=== PATIENT | male | born 1950 | race Hispanic/Latino ===

== ENCOUNTER 2020-09-02 22:11 | Inpatient (IN) | payer MEDICARE ==
[~2020-09-02] VITALS: Ht 175.3 cm; Wt 58.4 kg
[2020-09-02 23:17] LABS: BASOPHILS % (AUTO) 0.5 % (0.0-5.0); EOSINOPHILS % (AUTO) 3.4 % (0.0-8.0); HEMATOCRIT 40.4 % (42-54); LYMPHOCYTES % (AUTO) 23.1 % (21.0-51.0); MEAN CORPUSCULAR HEMOGLOBIN 30.5 pg (27.0-33.0); MEAN CORPUSCULAR HGB CONC 33.4 g/dL (32.0-36.0); MEAN CORPUSCULAR VOLUME 91.2 fL (79-99); MONOCYTES % (AUTO) 6.9 % (3.0-13.0); NEUTROPHILS % (AUTO) 65.8 % (40.0-77.0); PLATELET COUNT (AUTO) 222 K/uL (130-400); RED BLOOD CELL COUNT(AUTO) 4.43 MIL/uL (4.50-6.20); RED CELL DISTRIBUTION WIDTH 12.8 % (11.0-15.5); WHITE BLOOD COUNT (AUTO) 9.5 K/uL (4.8-10.8)
[2020-09-02 23:26] LABS: POTASSIUM 4.5 mmol/L (3.5-5.1)
[2020-09-02 23:32] LABS: ALBUMIN 3.8 g/dL (3.5-5.0); BILIRUBIN,TOTAL 0.5 mg/dL (0.2-1.0); TOTAL PROTEIN, SERUM 9.2 g/dL (6.0-8.3)
[2020-09-03 01:46] LABS: APPEARANCE,URINE Cloudy (CLEAR); BILIRUBIN,URINE Negative (NEGATIVE); COLOR,URINE Dark Yellow (YELLOW); GLUCOSE, URINE (UA) Negative (NEGATIVE); KETONES,URINE Trace mg/dL (NEGATIVE); LEUKOCYTE ESTERASE ,URINE Large (NEGATIVE); NITRATE,URINE Negative (NEGATIVE); OCCULT BLOOD,URINE Small (NEGATIVE); PH,URINE 5.5 (5.0-8.0); PROTEIN,URINE 300 mg/dL (NEGATIVE)
[2020-09-03 01:55] LABS: BACTERIA,URINE Many /HPF (None Seen); SQUAMOUS EPITHELIAL CELL,UR Moderate /HPF (0-2); WBC,URINE 26-50 /HPF (0-1)
[2020-09-03] MEDS ORDERED: ZOSYN 3.375GM+NS 50ML 50 ML IV ONE ×2 (06:29→13:01)
[2020-09-03] MEDS: LEVOTHYROXINE 75 MCG TABLET PO SCH (06:30)
[2020-09-03] MEDS: LEVOTHYROXINE 88 MCG TABLET PO SCH (06:30)
[2020-09-03 07:59] LABS: BASOPHILS % (AUTO) 0.6 % (0.0-5.0); EOSINOPHILS % (AUTO) 2.3 % (0.0-8.0); HEMATOCRIT 40.9 % (42-54); LYMPHOCYTES % (AUTO) 22.5 % (21.0-51.0); MEAN CORPUSCULAR HEMOGLOBIN 29.9 pg (27.0-33.0); MEAN CORPUSCULAR HGB CONC 32.3 g/dL (32.0-36.0); MEAN CORPUSCULAR VOLUME 92.5 fL (79-99); MONOCYTES % (AUTO) 5.7 % (3.0-13.0); NEUTROPHILS % (AUTO) 68.6 % (40.0-77.0); PLATELET COUNT (AUTO) 217 K/uL (130-400); RED BLOOD CELL COUNT(AUTO) 4.42 MIL/uL (4.50-6.20); RED CELL DISTRIBUTION WIDTH 12.8 % (11.0-15.5); WHITE BLOOD COUNT (AUTO) 9.6 K/uL (4.8-10.8)
[2020-09-03] MEDS ORDERED: ATOR10 PO (08:08)
[2020-09-03] MEDS ORDERED: AEC81 PO (08:08)
[2020-09-03] MEDS ORDERED: FERR324T PO (08:08)
[2020-09-03] MEDS ORDERED: LOSA25TA41 PO (08:08)
[2020-09-03] MEDS ORDERED: OMEP40CA21 PO (08:08)
[2020-09-03] MEDS ORDERED: LEVO75CA5 PO (08:08)
[2020-09-03] MEDS ORDERED: GABA300C PO (08:08)
[2020-09-03] MEDS ORDERED: FENO145T26 PO ×2 (08:08)
[2020-09-03 08:11] LABS: HEMOGLOBIN A1C 7.8 % (4.0-6.0); POTASSIUM 4.5 mmol/L (3.5-5.1)
[2020-09-03] MEDS ORDERED: ENOXAPARIN SODIUM 30 MG/0.3 ML SQ ONE (08:31)
[2020-09-03] MEDS ORDERED: ONDANSETRON 4MG TABLET PO PRN (09:15)
[2020-09-03] MEDS ORDERED: ACETAMINOPHEN 325 MG TAB PO PRN (09:15)
[2020-09-03] MEDS ORDERED: OMEG-148 PO (09:39)
[2020-09-03] MEDS ORDERED: LEVO88CA4 PO (09:39)
[2020-09-03] MEDS ORDERED: AMLO-257 PO (09:39)
[2020-09-03] MEDS ORDERED: VITAMIN D PO (09:39)
[2020-09-03] MEDS ORDERED: CITA-107 PO (09:39)
[2020-09-03] MEDS ORDERED: MONT5TAB24 PO (09:39)
[2020-09-03] MEDS: INSULIN R PO SS1 SQ SCH ×2 (11:30→17:14)
[2020-09-03] MEDS: ZOSYN 3.375GM+NS 50ML 50 ML IV SCH ×2 (13:00→20:38)
[2020-09-03] MEDS ORDERED: 0.9%NACL 50ML 50 ML IV ONE (13:05)
[2020-09-03] MEDS ORDERED: DEXTROSE 5 % AND 0.9 % NACL 1,000 ML IV ONE (15:21)
[2020-09-03] MEDS: DEXTROSE 5 % AND 0.9 % NACL 1,000 ML IV SCH (16:15)
[2020-09-03 16:35] VITALS: BP 171/87
[2020-09-03 20:50] VITALS: BP 130/67
[2020-09-03] MEDS: MONTELUKAST SODIUM 5 MG PO SCH (21:00)
[2020-09-03] MEDS: FERROUS GLUCONATE TABLET PO SCH (21:00)
[2020-09-03] MEDS: GABAPENTIN 300 MG CAPSULE PO SCH (21:00)
[2020-09-03] MEDS: FISH OIL 1000 MG/CAP PO SCH (21:00)
[2020-09-03] MEDS: AMLODIPINE 5 MG TAB PO SCH (21:00)
[2020-09-03] MEDS: ATORVASTATIN 10 MG TABLET PO SCH (21:00)
[2020-09-04] VITALS (7 sets, daily range): BP systolic 107–171; BP diastolic 66–86
[2020-09-04] MEDS: ZOSYN 3.375GM+NS 50ML 50 ML IV SCH ×3 (04:57→20:51)
[2020-09-04] MEDS: INSULIN HUMULIN R 100 UNIT/ML 3ML SQ SCH ×5 (06:00→20:53)
[2020-09-04] MEDS ORDERED: LOSARTAN 25 MG TABLET PO SCH (09:00)
[2020-09-04] MEDS: ASPIRIN 81 MG EC TAB PO SCH (12:00)
[2020-09-04] MEDS: AMLODIPINE 5 MG TAB PO SCH ×2 (12:00→20:51)
[2020-09-04] MEDS: LEVOTHYROXINE 75 MCG TABLET PO SCH (12:26)
[2020-09-04] MEDS: FISH OIL 1000 MG/CAP PO SCH ×2 (12:27→20:52)
[2020-09-04] MEDS: PANTOPRAZOLE 40 MG TAB DR PO SCH (12:27)
[2020-09-04] MEDS: FERROUS GLUCONATE TABLET PO SCH ×2 (12:30→20:52)
[2020-09-04] MEDS: CITALOPRAM 20 MG TABLET PO SCH (12:31)
[2020-09-04] MEDS: ENOXAPARIN SODIUM 30 MG/0.3 ML SQ SCH (12:32)
[2020-09-04] MEDS: DEXTROSE 5 % AND 0.9 % NACL 1,000 ML IV SCH (12:50)
[2020-09-04] MEDS: GABAPENTIN 300 MG CAPSULE PO SCH (20:51)
[2020-09-04] MEDS: ATORVASTATIN 10 MG TABLET PO SCH (20:51)
[2020-09-04] MEDS ORDERED: 0.9% NACL 250ML 250 ML IV ONE (20:55)
[2020-09-04] MEDS: MONTELUKAST SODIUM 5 MG PO SCH (21:00)
[2020-09-04] MEDS ORDERED: BALSAM PERU/CASTOR OIL 60 GM TUBE TP SCH (21:00)
[2020-09-04] MEDS: BALSAM PERU/CASTOR OIL 60 GM TUBE TP SCH (21:49)
[2020-09-05 03:50] VITALS: BP 124/73
[2020-09-05] MEDS: ZOSYN 3.375GM+NS 50ML 50 ML IV SCH ×3 (04:54→21:25)
[2020-09-05 05:22] LABS: HEMATOCRIT 38.3 % (42-54); MEAN CORPUSCULAR HGB CONC 31.9 g/dL (32.0-36.0); MEAN CORPUSCULAR VOLUME 94.1 fL (79-99); RED BLOOD CELL COUNT(AUTO) 4.07 MIL/uL (4.50-6.20); RED CELL DISTRIBUTION WIDTH 12.9 % (11.0-15.5); WHITE BLOOD COUNT (AUTO) 8.5 K/uL (4.8-10.8)
[2020-09-05 05:47] LABS: POTASSIUM 3.4 mmol/L (3.5-5.1)
[2020-09-05] MEDS: INSULIN HUMULIN R 100 UNIT/ML 3ML SQ SCH ×5 (06:00→21:32)
[2020-09-05] MEDS ORDERED: LIDOCAINE HCL-MPF 1% 2ML VIAL IV PRN (06:45)
[2020-09-05] MEDS ORDERED: POTASSIUM CHLORIDE 10MEQ/100ML 100 ML IV PRN (06:45)
[2020-09-05] MEDS ORDERED: 1/2 NS 1000ML 1,000 ML IV ONE ×2 (06:48→06:51)
[2020-09-05] MEDS: LEVOTHYROXINE 88 MCG TABLET PO SCH (06:52)
[2020-09-05] MEDS: LEVOTHYROXINE 75 MCG TABLET PO SCH (06:52)
[2020-09-05] MEDS: 1/2 NS 1000ML 1,000 ML IV SCH ×2 (07:40→21:25)
[2020-09-05 08:58] VITALS: BP 145/68
[2020-09-05] MEDS ORDERED: ERGOCALCIFEROL (VITAMIN D2) 50,000 UNIT CAPSULE PO SCH (09:00)
[2020-09-05] MEDS: AMLODIPINE 5 MG TAB PO SCH ×2 (10:04→21:27)
[2020-09-05] MEDS: FERROUS GLUCONATE TABLET PO SCH ×2 (10:04→21:26)
[2020-09-05] MEDS: FISH OIL 1000 MG/CAP PO SCH ×2 (10:04→21:26)
[2020-09-05] MEDS: CITALOPRAM 20 MG TABLET PO SCH (10:04)
[2020-09-05] MEDS: PANTOPRAZOLE 40 MG TAB DR PO SCH (10:04)
[2020-09-05] MEDS: ASPIRIN 81 MG EC TAB PO SCH (10:05)
[2020-09-05] MEDS: BALSAM PERU/CASTOR OIL 60 GM TUBE TP SCH ×3 (10:06→21:27)
[2020-09-05] MEDS: ENOXAPARIN SODIUM 30 MG/0.3 ML SQ SCH (10:06)
[2020-09-05 13:09] VITALS: BP 152/74
[2020-09-05] MEDS: KCL 20 MEQ ERTAB PO PRN ×2 (14:49→18:15)
[2020-09-05 15:00] VITALS: BP 140/73
[2020-09-05 20:00] VITALS: BP 153/86
[2020-09-05] MEDS: MONTELUKAST SODIUM 5 MG PO SCH (21:00)
[2020-09-05] MEDS: GABAPENTIN 300 MG CAPSULE PO SCH (21:26)
[2020-09-05] MEDS: ATORVASTATIN 10 MG TABLET PO SCH (21:26)
[2020-09-05 23:51] VITALS: BP 136/68
[2020-09-06 03:54] VITALS: BP 127/73
[2020-09-06] MEDS: ZOSYN 3.375GM+NS 50ML 50 ML IV SCH ×3 (05:02→20:52)
[2020-09-06] MEDS: INSULIN HUMULIN R 100 UNIT/ML 3ML SQ SCH ×4 (05:59→20:50)
[2020-09-06 06:03] LABS: HEMATOCRIT 39.1 % (42-54); MEAN CORPUSCULAR HGB CONC 32.5 g/dL (32.0-36.0); MEAN CORPUSCULAR VOLUME 92.2 fL (79-99); RED BLOOD CELL COUNT(AUTO) 4.24 MIL/uL (4.50-6.20); RED CELL DISTRIBUTION WIDTH 12.8 % (11.0-15.5); WHITE BLOOD COUNT (AUTO) 10.2 K/uL (4.8-10.8)
[2020-09-06] MEDS: LEVOTHYROXINE 88 MCG TABLET PO SCH (06:24)
[2020-09-06] MEDS: LEVOTHYROXINE 75 MCG TABLET PO SCH (06:24)
[2020-09-06] MEDS: 1/2 NS 1000ML 1,000 ML IV SCH (06:24)
[2020-09-06 06:39] LABS: CREATININE 1.6 mg/dL (0.5-1.5); POTASSIUM 3.2 mmol/L (3.5-5.1)
[2020-09-06 08:00] VITALS: BP 129/71
[2020-09-06] MEDS: CITALOPRAM 20 MG TABLET PO SCH (09:38)
[2020-09-06] MEDS: FERROUS GLUCONATE TABLET PO SCH ×2 (09:38→20:54)
[2020-09-06] MEDS: ASPIRIN 81 MG EC TAB PO SCH (09:38)
[2020-09-06] MEDS: AMLODIPINE 5 MG TAB PO SCH ×2 (09:38→20:53)
[2020-09-06] MEDS: FISH OIL 1000 MG/CAP PO SCH ×2 (09:38→20:53)
[2020-09-06] MEDS: PANTOPRAZOLE 40 MG TAB DR PO SCH (09:38)
[2020-09-06] MEDS: ENOXAPARIN SODIUM 30 MG/0.3 ML SQ SCH (09:38)
[2020-09-06] MEDS: BALSAM PERU/CASTOR OIL 60 GM TUBE TP SCH ×3 (09:39→22:39)
[2020-09-06 12:00] VITALS: BP 123/57
[2020-09-06 16:00] VITALS: BP 117/60
[2020-09-06 19:50] VITALS: BP 143/66
[2020-09-06] MEDS: GABAPENTIN 300 MG CAPSULE PO SCH (20:53)
[2020-09-06] MEDS: POTASSIUM CHLORIDE 10% ELIXIR 20 MEQ/15 ML UDCUP PO PRN ×2 (20:53→22:48)
[2020-09-06] MEDS: ATORVASTATIN 10 MG TABLET PO SCH (20:54)
[2020-09-06] MEDS: MONTELUKAST SODIUM 5 MG PO SCH (21:00)
[2020-09-06 23:30] VITALS: BP 107/58
[2020-09-07] MEDS: POTASSIUM CHLORIDE 10% ELIXIR 20 MEQ/15 ML UDCUP PO PRN (00:05)
[2020-09-07] MEDS: 1/2 NS 1000ML 1,000 ML IV SCH ×2 (02:09→12:50)
[2020-09-07 04:15] VITALS: BP 127/69
[2020-09-07] MEDS: LEVOTHYROXINE 75 MCG TABLET PO SCH (05:00)
[2020-09-07] MEDS: ZOSYN 3.375GM+NS 50ML 50 ML IV SCH ×3 (05:00→20:35)
[2020-09-07] MEDS: LEVOTHYROXINE 88 MCG TABLET PO SCH (05:00)
[2020-09-07] MEDS: INSULIN HUMULIN R 100 UNIT/ML 3ML SQ SCH ×4 (06:06→20:36)
[2020-09-07 08:00] VITALS: BP 167/68
[2020-09-07] MEDS: ASPIRIN 81 MG EC TAB PO SCH (08:35)
[2020-09-07] MEDS: FERROUS GLUCONATE TABLET PO SCH ×2 (08:35→20:35)
[2020-09-07] MEDS: FISH OIL 1000 MG/CAP PO SCH ×2 (08:35→20:35)
[2020-09-07] MEDS: AMLODIPINE 5 MG TAB PO SCH ×2 (08:35→20:35)
[2020-09-07] MEDS: CITALOPRAM 20 MG TABLET PO SCH (08:35)
[2020-09-07] MEDS: PANTOPRAZOLE 40 MG TAB DR PO SCH (08:35)
[2020-09-07] MEDS: ENOXAPARIN SODIUM 30 MG/0.3 ML SQ SCH (08:36)
[2020-09-07] MEDS: BALSAM PERU/CASTOR OIL 60 GM TUBE TP SCH ×3 (08:36→20:36)
[2020-09-07 11:45] VITALS: BP 122/58
[2020-09-07 16:00] VITALS: BP 131/86
[2020-09-07 19:45] VITALS: BP 146/70
[2020-09-07] MEDS: GABAPENTIN 300 MG CAPSULE PO SCH (20:35)
[2020-09-07] MEDS: ATORVASTATIN 10 MG TABLET PO SCH (20:35)
[2020-09-07] MEDS: MONTELUKAST SODIUM 5 MG PO SCH (20:36)
[2020-09-07 23:39] VITALS: BP 140/79
[2020-09-08] MEDS: 1/2 NS 1000ML 1,000 ML IV SCH ×2 (01:25→15:11)
[2020-09-08 04:00] VITALS: BP 140/72
[2020-09-08] MEDS: ZOSYN 3.375GM+NS 50ML 50 ML IV SCH ×3 (05:08→20:22)
[2020-09-08] MEDS: LEVOTHYROXINE 88 MCG TABLET PO SCH ×2 (05:10→06:30)
[2020-09-08] MEDS: LEVOTHYROXINE 75 MCG TABLET PO SCH (05:10)
[2020-09-08 05:17] LABS: HEMATOCRIT 33.6 % (42-54); MEAN CORPUSCULAR HEMOGLOBIN 30.6 pg (27.0-33.0); MEAN CORPUSCULAR HGB CONC 35.1 g/dL (32.0-36.0); RED BLOOD CELL COUNT(AUTO) 3.86 MIL/uL (4.50-6.20); RED CELL DISTRIBUTION WIDTH 12.4 % (11.0-15.5); WHITE BLOOD COUNT (AUTO) 8.4 K/uL (4.8-10.8)
[2020-09-08 05:45] LABS: CREATININE 1.4 mg/dL (0.5-1.5); MAGNESIUM 1.4 mg/dL (1.80-2.40); POTASSIUM 3.1 mmol/L (3.5-5.1)
[2020-09-08] MEDS: INSULIN HUMULIN R 100 UNIT/ML 3ML SQ SCH ×4 (05:54→20:26)
[2020-09-08] MEDS: POTASSIUM CHLORIDE 10% ELIXIR 20 MEQ/15 ML UDCUP PO PRN (05:58)
[2020-09-08] MEDS: KCL 20 MEQ ERTAB PO PRN (08:30)
[2020-09-08 08:32] VITALS: BP 120/72
[2020-09-08] MEDS: BALSAM PERU/CASTOR OIL 60 GM TUBE TP SCH ×3 (09:00→20:24)
[2020-09-08 11:00] VITALS: BP 130/66
[2020-09-08] MEDS: ASPIRIN 81 MG EC TAB PO SCH (11:04)
[2020-09-08] MEDS: ENOXAPARIN SODIUM 30 MG/0.3 ML SQ SCH (11:04)
[2020-09-08] MEDS: PANTOPRAZOLE 40 MG TAB DR PO SCH (11:05)
[2020-09-08] MEDS: AMLODIPINE 5 MG TAB PO SCH ×2 (11:05→20:22)
[2020-09-08] MEDS: FERROUS GLUCONATE TABLET PO SCH ×2 (11:05→20:23)
[2020-09-08] MEDS: CITALOPRAM 20 MG TABLET PO SCH (11:05)
[2020-09-08] MEDS: FISH OIL 1000 MG/CAP PO SCH ×2 (11:05→20:23)
[2020-09-08] MEDS ORDERED: MAGNESIUM 4GM PREMIX 100ML 100 ML IV SCH (14:30)
[2020-09-08 16:10] VITALS: BP 114/61
[2020-09-08 20:00] VITALS: BP 142/68
[2020-09-08] MEDS: ATORVASTATIN 10 MG TABLET PO SCH (20:23)
[2020-09-08] MEDS: FENOFIBRATE NANOCRYSTALLIZED 145 MG TAB PO SCH (20:24)
[2020-09-08] MEDS: GABAPENTIN 300 MG CAPSULE PO SCH (20:25)
[2020-09-08] MEDS: MONTELUKAST SODIUM 5 MG PO SCH (20:25)
[2020-09-08 23:47] VITALS: BP 142/85
[2020-09-09 03:05] VITALS: BP 130/67
[2020-09-09] MEDS: ZOSYN 3.375GM+NS 50ML 50 ML IV SCH ×2 (04:21→11:38)
[2020-09-09] MEDS: 1/2 NS 1000ML 1,000 ML IV SCH ×2 (04:21→16:41)
[2020-09-09] MEDS: INSULIN HUMULIN R 100 UNIT/ML 3ML SQ SCH ×3 (05:29→16:41)
[2020-09-09] MEDS: LEVOTHYROXINE 75 MCG TABLET PO SCH ×2 (05:40→09:00)
[2020-09-09 06:19] LABS: MAGNESIUM 2.5 mg/dL (1.80-2.40); POTASSIUM 3.4 mmol/L (3.5-5.1)
[2020-09-09] MEDS: POTASSIUM CHLORIDE 10% ELIXIR 20 MEQ/15 ML UDCUP PO PRN ×2 (06:25→11:01)
[2020-09-09 07:52] VITALS: BP 132/74
[2020-09-09] MEDS: AMLODIPINE 5 MG TAB PO SCH (10:39)
[2020-09-09] MEDS: FERROUS GLUCONATE TABLET PO SCH (10:39)
[2020-09-09] MEDS: ASPIRIN 81 MG EC TAB PO SCH (10:39)
[2020-09-09] MEDS: FISH OIL 1000 MG/CAP PO SCH (10:39)
[2020-09-09] MEDS: PANTOPRAZOLE 40 MG TAB DR PO SCH (10:39)
[2020-09-09] MEDS: FENOFIBRATE NANOCRYSTALLIZED 145 MG TAB PO SCH (10:39)
[2020-09-09] MEDS: CITALOPRAM 20 MG TABLET PO SCH (10:39)
[2020-09-09] MEDS: ENOXAPARIN SODIUM 30 MG/0.3 ML SQ SCH (10:40)
[2020-09-09] MEDS: BALSAM PERU/CASTOR OIL 60 GM TUBE TP SCH ×2 (10:41→11:39)
[2020-09-09 11:12] VITALS: BP 129/69
[2020-09-09 16:28] VITALS: BP 129/70
[2020-09-13] MEDS ORDERED: LEVOTHYROXINE 88 MCG TABLET PO SCH (06:30)
== END 2020-09-09 18:00 | DRG 872 ==
LOC: EDH 22:11 → EDHIP 09-03 05:25 → 3BH 09-03 16:20
PROVIDERS: ADMIT Internal Medicine Infectious Disease; ATTEND Internal Medicine Infectious Disease
DX: A41.50 Gram-negative sepsis, unspecified (principal); N39.0 Urinary tract infection, site not specified; E87.0 Hyperosmolality and hypernatremia; N17.9 Acute kidney failure, unspecified; Z68.1 Body mass index [BMI] 19.9 or less, adult; I69.354 Hemiplegia and hemiparesis following cerebral infarction affecting left non-dominant side; E46 Unspecified protein-calorie malnutrition; Z16.24 Resistance to multiple antibiotics; E83.42 Hypomagnesemia; E87.6 Hypokalemia; L98.429 Non-pressure chronic ulcer of back with unspecified severity; M19.90 Unspecified osteoarthritis, unspecified site; R53.81 Other malaise; I12.9 Hypertensive chronic kidney disease with stage 1 through stage 4 chronic kidney disease, or unspecified chronic kidney disease; N18.9 Chronic kidney disease, unspecified; D64.9 Anemia, unspecified; E11.22 Type 2 diabetes mellitus with diabetic chronic kidney disease; E03.9 Hypothyroidism, unspecified; B96.1 Klebsiella pneumoniae [K. pneumoniae] as the cause of diseases classified elsewhere; B96.4 Proteus (mirabilis) (morganii) as the cause of diseases classified elsewhere; E78.5 Hyperlipidemia, unspecified; Z87.440 Personal history of urinary (tract) infections; Z83.3 Family history of diabetes mellitus; Z82.5 Family history of asthma and other chronic lower respiratory diseases; Z82.3 Family history of stroke; Z82.49 Family history of ischemic heart disease and other diseases of the circulatory system; Z74.01 Bed confinement status; Z90.49 Acquired absence of other specified parts of digestive tract
CPT/HCPCS: 36415; 71045; 80048; 80053; 81001; 82948; 83036; 83735; 84132; 84484; 85025; 85027; 87077; 87088; 87186; 92526; 92610; 93005; G0378; J1650; J1815; J2543; J3475; J7042; J7050

== ENCOUNTER 2021-01-06 08:28 | Day surgery (SDC) | payer MEDICARE ==
[2021-01-06] VITALS (8 sets, daily range): BP systolic 94–152; BP diastolic 54–74
[~2021-01-06 08:28] MED LIST: 0.9%NACL 1000ML 1,000 ML IV ONE; AEC81 PO; AMLO-257 PO; ATOR10 PO; CITA-107 PO; FENO145T26 PO; FERR324T PO; GABA300C PO; LEVO75CA5 PO; LEVO88CA4 PO; LOSA25TA41 PO; MONT5TAB23 PO; OMEG-148 PO; OMEP40CA21 PO; VITAMIN D PO
[2021-01-06] MEDS ORDERED: PROPOFOL 10 MG/ML 20ML VIAL IV ONE (11:47)
== END 2021-01-06 13:05 | disposition home or self-care (01) ==
LOC: ENDO 08:28 → DAH 08:28 → ENDO 13:05
PROVIDERS: ATTEND Internal Medicine
DX: K92.1 Melena (principal); K57.30 Diverticulosis of large intestine without perforation or abscess without bleeding; I10 Essential (primary) hypertension; E78.00 Pure hypercholesterolemia, unspecified; R76.8 Other specified abnormal immunological findings in serum; F06.8 Other specified mental disorders due to known physiological condition; Z79.899 Other long term (current) drug therapy; Z93.1 Gastrostomy status; Z90.49 Acquired absence of other specified parts of digestive tract
CPT/HCPCS: 45330; 82948 ×2; 87635; 93005; A4215 ×2; A4221; A4222; A4223; A4606; A4620; A4657; A4663; J2704; J7030